=== PATIENT | male | born 1995 | race Caucasian/White ===

== ENCOUNTER 2017-06-08 10:35 | Emergency (ER) | payer OTHER ==
[~2017-06-08] VITALS: Ht 177.8 cm; Wt 88.8 kg
[2017-06-08 10:40] VITALS: BP 133/80
[2017-06-08] MEDS ORDERED: AZITHROMYCIN 500 MG TABLET PO ONE (11:30)
[2017-06-08] MEDS ORDERED: CEFTRIAXONE 250 MG IM ONE (11:30)
[2017-06-08] MEDS ORDERED: AZITHROMYCIN 500 MG TABLET ONE (12:05)
[2017-06-08] MEDS ORDERED: LIDOCAINE-MPF 2% ,5ML ONE ×2 (12:06→12:07)
[2017-06-08] MEDS ORDERED: CEFTRIAXONE 250 MG ONE (12:06)
== END 2017-06-08 13:35 | disposition home or self-care (01) ==
LOC: ED 12:54
DX: L04.1 Acute lymphadenitis of trunk (principal); I10 Essential (primary) hypertension
CPT/HCPCS: 81001; 96372; 99284; J0696

== ENCOUNTER 2018-05-05 19:06 | Emergency (ER) | payer MEDICAID ==
[~2018-05-05] VITALS: Ht 177.8 cm; Wt 81.5 kg
[2018-05-05] MEDS ORDERED: SODIUM CHLORIDE 0.9% 1,000ML IVBOLUS ONE (19:30)
[2018-05-05] MEDS ORDERED: SODIUM CHLORIDE FLUSH 10ML SYR IVF ONE (19:30)
[2018-05-05 19:52] LABS: MEAN CORPUSCULAR HEMOGLOBIN 29.4 pg (27.5-34.5); MEAN CORPUSCULAR HGB CONC 33.2 g/dL (33.2-36.2); MEAN CORPUSCULAR VOLUME 88.4 fL (81-97); MEAN PLATELET VOLUME 9.6 fL (7.4-10.4); PLATELET COUNT 229 x10^3/uL (130-400); RED CELL DISTRIBUTION WIDTH 13.6 % (9.4-14.8)
[2018-05-05] MEDS ORDERED: LORazepam 2 MG/ML, 1ML ONE (19:55)
[2018-05-05] MEDS ORDERED: LORazepam 2 MG/ML, 1ML IVPush ONE (20:00)
[2018-05-05 20:02] LABS: ALANINE AMINOTRANSFERASE 22 U/L (12-78); ALBUMIN 4.3 g/dL (3.4-5.0); ANION GAP 6 mmol/L (5-15); CALCIUM 9.2 mg/dL (8.5-10.1); CHLORIDE 106 mmol/L (98-107); CREATININE 1.24 mg/dL (0.7-1.3)
[2018-05-05 20:06] LABS: ALKALINE PHOSPHATASE 87 U/L (45-117); BILIRUBIN,TOTAL 1.1 mg/dL (0.2-1.0); TOTAL PROTEIN 7.1 g/dL (6.4-8.2); TROPONIN I < 0.015 ng/mL (0.000-0.045)
[2018-05-05 20:22] LABS: MD YES
[2018-05-05 20:24] LABS: LYMPH#(MANUAL) 2.22 x10^3/uL (1-3.4); LYMPHS% (MANUAL) 12 % (22-44); MONOS#(MANUAL) 0.56 x10^3/uL (0.3-2.7); MONOS% (MANUAL) 3 % (2-9); SEG#(MANUAL) 15.73 x10^3/uL (1.8-6.8); SEGS% (MANUAL) 85 % (42-75)
[2018-05-05 20:25] LABS: <PLATELET ESTIMATE> ADEQUATE; <PLT MORPHOLOGY> NORMAL PLT MORPH; <RBC MORPHOLOGY> NORMAL
[2018-05-05 21:38] VITALS: BP 121/74
== END 2018-05-05 21:57 | disposition home or self-care (01) ==
LOC: ED 19:48
DX: R07.9 Chest pain, unspecified (principal); F41.1 Generalized anxiety disorder; D72.829 Elevated white blood cell count, unspecified; F12.10 Cannabis abuse, uncomplicated; I10 Essential (primary) hypertension
CPT/HCPCS: 36415; 71045; 76700; 80053; 83690; 84484; 85025; 85379; 93005; 96361; 96374; 99285; J2060; J7030

== ENCOUNTER 2019-03-23 17:57 | Emergency (ER) | payer SELFPAY ==
[~2019-03-23] VITALS: Ht 177.8 cm; Wt 91.0 kg
[2019-03-23 18:37] VITALS: BP 132/87
[2019-03-23] MEDS ORDERED: IBUPROFEN 200 MG TABLET PO STA (19:22)
[2019-03-23] MEDS ORDERED: IBUPROFEN 800 MG TABLET PO STA (19:22)
[2019-03-23] MEDS ORDERED: IBUPROFEN 200 MG TABLET ONE (19:25)
== END 2019-03-23 19:39 | disposition home or self-care (01) ==
LOC: ED 19:00
DX: S67.21XA Crushing injury of right hand, initial encounter (principal); X58.XXXA Exposure to other specified factors, initial encounter; Y93.89 Activity, other specified; Y92.410 Unspecified street and highway as the place of occurrence of the external cause; Y99.8 Other external cause status
CPT/HCPCS: 99283